=== PATIENT | male | born 1990 | race Caucasian/White ===

== ENCOUNTER 2018-09-18 20:31 | Inpatient (IN) | payer MEDICARE, MEDICAID ==
[~2018-09-18] VITALS: Ht 142.2 cm; Wt 59.4 kg
[~2018-09-18 20:31] MED LIST: ACET500C OR; ADVIL PM PO; CONGESTION PO; MSM PO; MULTIVIT PO; PRED20TA OR; TUMS500C OR; VICO5TAB OR; VIT D 2000 PO
[2018-09-18] MEDS ORDERED: NS 1,000 ML IV ONE (21:45)
[2018-09-18 21:48] LABS: BASO % 0.3 % (0.0-1.0); HEMOGLOBIN 17.8 g/dl (13.5-17.5); LYMPH % 8.6 % (24.0-44.0); MEAN CORPUSCULAR HGB CONC 31.8 g/dl (32.0-36.5); MEAN CORPUSCULAR VOLUME 100.7 fl (80.0-96.0); MONO # 0.5 10^3/uL (0.0-0.8); NEUTROPHILS # 10.3 10^3/uL (1.8-7.7); PLATELET COUNT, AUTOMATED 285 10^3/uL (150-450); RED BLOOD COUNT 5.56 10^6/uL (4.30-6.10); WHITE BLOOD COUNT 11.9 10^3/uL (4.0-10.0)
[2018-09-18 22:08] LABS: ALBUMIN 3.9 GM/DL (3.2-5.2); ALT/SGPT 1141 U/L (12-78); BILIRUBIN,TOTAL 1.8 MG/DL (0.2-1.0); BLOOD UREA NITROGEN 27 MG/DL (7-18); CALCIUM LEVEL 9.1 MG/DL (8.5-10.1); CARBON DIOXIDE LEVEL 31 MEQ/L (21-32); CHLORIDE LEVEL 96 MEQ/L (98-107); CREATININE FOR GFR 0.28 MG/DL (0.70-1.30); GLOMERULAR FILTRATION RATE > 60.0 (>60); GLUCOSE, FASTING 106 MG/DL (70-100); POTASSIUM SERUM 5.5 MEQ/L (3.5-5.1); SODIUM LEVEL 135 MEQ/L (136-145); TOTAL PROTEIN 6.4 GM/DL (6.4-8.2)
[2018-09-18 22:21] LABS: ABG BASE EXCESS -2.3 (-2.0-2.0); ABG HCO3 29.8 MEQ/L (22.0-26.0); ABG O2 SATURATION 98.4 % (95.0-99.0); ABG PARTIAL PRESSURE O2 143.3 mmHg (75.0-100.0); ABG STANDARD HCO3 22.6 MEQ/L (22.0-26.0); ABG TOTAL CO2 32.4 MEQ/L (22.0-29.0)
[2018-09-18 22:23] LABS: ABG PARTIAL PRESSURE CO2 86.4 mmHg (35.0-45.0); ABG pH (ARTERIAL) 7.155 UNITS (7.350-7.450)
[2018-09-18] MEDS ORDERED: LIDOCAINE 2% 5ML JELLY UROJET TOP ONE (22:30)
[2018-09-18 23:02] LABS: APPEARANCE, URINE MANUAL CLOUDY (CLEAR); COLOR, URINE MANUAL DK YELLOW (YELLOW)
[2018-09-18 23:03] LABS: BLOOD URINE MANUAL POSITIVE (NEGATIVE); GLUCOSE, URINE (UA) MANUAL NEGATIVE (NEGATIVE); PROTEIN, URINE MANUAL 2+ mg/dL (NEGATIVE); SPECIFIC GRAVITY,URINE MANUAL 1.026 (1.002-1.035)
[2018-09-18 23:05] LABS: LEUKOCYTE ESTERASE, URINE MAN NEGATIVE (NEGATIVE)
[2018-09-18 23:06] LABS: BILIRUBIN, URINE MANUAL OBSCURED (NEGATIVE); KETONE, URINE MANUAL OBSCURED mg/dL (NEGATIVE); NITRITE, URINE MANUAL NEGATIVE (NEGATIVE); UROBILINOGEN, URINE MANUAL OBSCURED mg/dl (NORMAL)
[2018-09-18] MEDS ORDERED: MUPI2OI EXT (23:08)
[2018-09-18] MEDS ORDERED: C 50TAB PO (23:08)
[2018-09-18] MEDS ORDERED: CALTCHW4 PO (23:08)
[2018-09-18] MEDS ORDERED: CO Q100C PO (23:08)
[2018-09-18] MEDS ORDERED: CVS125CA3 PO (23:08)
[2018-09-18] MEDS ORDERED: HM P99TA PO (23:08)
[2018-09-18] MEDS ORDERED: NEXI20CA PO (23:08)
[2018-09-18] MEDS ORDERED: D-10TAB2 PO (23:08)
[2018-09-18] MEDS ORDERED: CYAN500T3 PO (23:08)
[2018-09-18] MEDS ORDERED: HYDR-3713 PO (23:08)
[2018-09-18] MEDS ORDERED: GABA-1171 PO (23:08)
[2018-09-18] MEDS ORDERED: TIZA2TAB4 PO (23:08)
[2018-09-18] MEDS ORDERED: [UNRECOGNIZED DRUG - CODE] PO (23:08)
[2018-09-18] MEDS ORDERED: DOCU100C16 PO (23:08)
[2018-09-18] MEDS ORDERED: VITMTA PO (23:08)
[2018-09-18] MEDS ORDERED: [UNRECOGNIZED DRUG - CODE] PO (23:08)
[2018-09-18] MEDS ORDERED: BACITAB PO (23:08)
[2018-09-18] MEDS ORDERED: ISOVUE-370 76% 100ML VIAL (Q9967) As Ordered ONE (23:11)
[2018-09-18 23:18] LABS: SQUAMOUS EPITHELIAL CELL URINE NONE SEEN /hpf (SMALL AMT); TRANSITIONAL EPI CELLS, URINE SMALL AMOUNT /hpf
[2018-09-18 23:20] LABS: HYALINE CAST, URINE 40-50 /lpf (0-1)
[2018-09-18 23:22] LABS: AMORPHOUS SEDIMENT, URINE LARGE AMOUNT (NEGATIVE); BACTERIA, URINE NONE SEEN; MUCUS, URINE SMALL AMOUNT (NEGATIVE)
[2018-09-19] MEDS ORDERED: PIPERACILLIN/TAZOBACTAM SOD 4.5 GM in D5W MINI-BAG PLUS 50 ML IV ONE (01:15)
[2018-09-19] MEDS ORDERED: MORPHINE 2 MG/ML 1ML SYRINGE (J2270) IV ONE (01:15)
--- NOTE | 2018-09-19 01:23 | REPVR ---
EXAM: CT Abdomen and Pelvis With Contrast EXAM DATE/TIME: 09/18/2018 10:26 PM CLINICAL HISTORY: 28 years old, male; Abdominal pain; Generalized; Sepsis TECHNIQUE: Imaging protocol: Axial computed tomography images of the abdomen and pelvis with intravenous contrast. Coronal and sagittal reformatted images were created and reviewed. Radiation optimization: All CT scans at this facility use at least one of these dose optimization techniques: automated exposure control; mA and/or kV adjustment per patient size (includes targeted exams where dose is matched to clinical indication); or iterative reconstruction. Contrast material: ISO; Contrast volume: 100 ml; Contrast route: FOREARM; COMPARISON: No relevant prior studies available. FINDINGS: ABDOMEN: Liver: The liver is unremarkable. No liver lesion is seen. The contour of the liver is smooth. No hepatomegaly is noted. Gallbladder and bile ducts: No calcified gallstones are seen. No gallbladder wall thickening, pericholecystic fluid, or pericholecystic inflammatory changes are identified. No dilation of the intrahepatic or extrahepatic bile ducts is noted. Pancreas: Normal. No dilation of the main pancreatic duct is noted. Spleen: Normal. No splenomegaly is noted. Adrenals: Normal. No adrenal mass. Kidneys and ureters: The kidneys are normal in appearance. No renal lesion is identified. No calculi are seen in the kidneys or ureters. There is no hydronephrosis or hydroureter. There are no wedge-shaped areas of low attenuation in the kidneys to suggest pyelonephritis. There is no renal abscess or perinephric fluid collection. Stomach and bowel: There is no evidence for a bowel obstruction, diverticulosis, diverticulitis, colitis, pneumatosis intestinalis, intussusception, volvulus, or perforated viscus. Appendix: Normal. There is no evidence for appendicitis. PELVIS: Bladder: There is thickening of the wall of the urinary bladder. No stones are noted in the bladder. Reproductive: The prostate gland and seminal vesicles are unremarkable. ABDOMEN and PELVIS: Intraperitoneal space: Normal. No free air. No fluid collection. Bones/joints: There is a mild anterior wedge compression deformity of T12 and moderate anterior wedge compression deformities of L1, L2, L3, L4, and L5, which appear chronic in nature. There is no radiolucent fracture line, cortical step-off, or retropulsion of the cortex. There is a chronic healed fracture deformities involving both femoral necks. No acute fracture is noted. There is a levoscoliosis of the lumbar spine, which may in part be positional in nature. Soft tissues: There is severe diffuse fatty atrophy of the muscles. There is a extensive edema in the subcutaneous tissues in the inguinal regions, perineal region, and upper inner thighs. No drainable soft tissue fluid collection is noted. There is no gas in the soft tissues. Vasculature: The abdominal aorta is normal in caliber and patent. The iliac arteries, common femoral arteries, renal arteries, celiac artery, superior mesenteric artery, and inferior mesenteric artery are patent. There are numerous varicosities in the perianal region. Lymph nodes: Normal. No enlarged lymph nodes. Other findings: There is marked right greater than left eventration of the hemidiaphragms. IMPRESSION: 1. Thickening of the wall of the urinary bladder, which may be secondary to its partially distended state, bladder wall hypertrophy, or cystitis. Correlation with urinalysis is suggested. 2. Extensive edema in the subcutaneous tissues in the inguinal regions, perineal region, and upper inner thighs, which may represent cellulitis or lymphedema. 3. Mild anterior wedge compression deformity of T12 and moderate anterior wedge compression deformities of L1, L2, L3, L4, and L5, which appear chronic in nature. Electronically signed by: Kian Samayoa On 09/19/2018 01:22:24 AM
--- NOTE | 2018-09-19 01:23 | REPVR ---
EXAM: CT Chest With Contrast EXAM DATE/TIME: 09/18/2018 10:26 PM CLINICAL HISTORY: 28 years old, male; Sepsis TECHNIQUE: Imaging protocol: Axial computed tomography images of the chest with intravenous contrast. Coronal and sagittal reformatted images were created and reviewed. Radiation optimization: All CT scans at this facility use at least one of these dose optimization techniques: automated exposure control; mA and/or kV adjustment per patient size (includes targeted exams where dose is matched to clinical indication); or iterative reconstruction. Contrast material: ISO; Contrast volume: 100 ml; Contrast route: FOREARM; COMPARISON: No relevant prior studies available. FINDINGS: Lungs: There is atelectasis in the right upper lobe, right middle lobe, right lower lobe, and left lower lobe. The lungs are otherwise clear. Pleural space: There is a small right pleural effusion. No pneumothorax. Heart: No cardiomegaly. No pericardial effusion. Mediastinum: No mediastinal mass, hemorrhage, or pneumomediastinum is noted. Pulmonary arteries: The main and lobar pulmonary arteries are patent. This study was not dedicated for the evaluation of the segmental and subsegmental pulmonary arteries. Aorta: There is no thoracic aortic aneurysm, pseudoaneurysm, penetrating atherosclerotic ulcer, or dissection. Lymph nodes: Normal. No enlarged lymph nodes. Bones/joints: There are mild anterior wedge compression deformities of T4, T5, T6, and T12, which appear chronic in nature. There are moderate anterior wedge compression deformities of T8, L1, L2, and L3, which also appear chronic in nature. No radiolucent fracture line, cortical step-off, or cortex is noted. There is no suspicious osteolytic or osteoblastic lesion. Soft tissues: There is diffuse severe fatty atrophy of the muscles. There is edema in the subcutaneous tissues in the posterior aspect of the right axillary region. Diaphragm: There is marked right greater than left eventration of the hemidiaphragms. IMPRESSION: 1. Small right pleural effusion. 2. No lung consolidation. 3. Mild anterior wedge compression deformities of T4, T5, T6, and T12, which appear chronic in nature. Moderate anterior wedge compression deformities of T8, L1, L2, and L3, which also appear chronic in nature. 4. Marked right greater than left eventration of the hemidiaphragms. Electronically signed by: Kian Samayoa On 09/19/2018 01:22:40 AM
[2018-09-19] MEDS ORDERED: NS 1,000 ML IV ONE ×2 (02:00)
[2018-09-19] MEDS ORDERED: D5W/0.9% SODIUM CHLORIDE 1,000 ML IV SCH (02:36)
[2018-09-19 03:18] LABS: ACETAMINOPHEN LEVEL 3.5 UG/ML (10.0-30.0)
[2018-09-19 03:50] VITALS: BP 70/42
--- NOTE | 2018-09-19 04:22 | HPEPDOC ---
General Date of Admission September 19, 2018 at 02:36 Date of Service: September 19, 2018 Chief Complaint The patient is a 28-year-old male admitted with a reason for visit of Acute Liver Failure. 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 He also complained of abdominal pain and difficulty in swallowing for 1 day and as per Mom had 4 days of poor appetite. The Abdominal pain was located in the right upper quadrant without any diarrhea or constipation. The pain seemed to be constant as per mom and he may have had some associated nausea. There was no history of any fever or chills at home. He did have dark colored urine for 2 days and very small amount of urine output for 1 day. On initial presentation to the ED he was alert and oriented and could verbalize his symptoms however he was anxious and agitated as he was in pain and very uncomfortable so received 2mg of morphine which calmed him down however it also sedated him so during my interview he was only able to open his eyes briefly but could not talk. Initially his saturation was 78% in room air which improved with oxygen. He was lethargic. Patient was found to have very abnormal liver function tests and his ABG showed acute respiratory failure with hypercarbia and hypoxia. Patient had a CT abdomen and pelvis done which showedThickening of the wall of the urinary bladder, which may be secondary to its partially distended state, bladder wall hypertrophy, or cystitis. Extensive edema in the subcutaneous tissues in the inguinal regions, perineal region, and upper inner thighs, which may represent cellulitis or lymphedema. Mild anterior wedge compression deformity of T12 and moderate anterior wedge compression deformities of L1, L2, L3, L4, and L5, which appear chronic in nature. CT chest was also done . Small right pleural effusion. No lung consolidation. Mild anterior wedge compression deformities of T4, T5, T6, and T12, which appear chronic in nature. Moderate anterior wedge compression deformities of T8, L1, L2, and L3, which also appear chronic in nature. Marked right greater than left eventration of the hemidiaphragms. Home Medications Scheduled Ascorbic Acid (Vitamin C) 500 Mg Tablet, 500 MG PO DAILY, (Reported) Calcium Carbonate/Vitamin D3 (Caltrate 600 + D Soft Chew Tab) 1 Each Tab.chew, 1 CHW PO DAILY, (Reported) Cholecalciferol (Vitamin D3) (Vitamin D3) 1,000 Unit Tablet, 1,000 UNIT PO DAILY, (Reported) Cyanocobalamin (Vitamin B-12) (Vitamin B-12) 500 Mcg Tablet, 500 MCG PO DAILY, (Reported) Deflazacort (Emflaza) 6 Mg Tablet, 6 MG PO DAILY, (Reported) TAKES WITH 30MG FOR 36MG TOTAL Deflazacort (Emflaza) 30 Mg Tablet, 30 MG PO DAILY, (Reported) TAKES WITH 6MG FOR 36MG TOTAL Docusate Sodium (Docusate Sodium) 100 Mg Capsule, 100 MG PO DAILY, (Reported) Esomeprazole Magnesium (Nexium) 20 Mg Capsule.dr, 20 MG PO BID, (Reported) Gabapentin (Gabapentin) 100 Mg Capsule, 600 MG PO BID, (Reported) L.acidoph/L.bulg/B.bif/S.therm (Bacid Caplet) 1 Each Tablet, 1 TAB PO DAILY, (Reported) Multivitamins (Thera M Plus Tablet) 1 Each Tablet, 1 TAB PO DAILY, (Reported) Potassium Gluconate (Potassium) 99 Mg Tablet, 99 MG PO DAILY, (Reported) Simethicone (Gas Relief) 125 Mg Capsule, 125 MG PO BID, (Reported) Ubidecarenone (Co Q-10) 100 Mg Capsule, 100 MG PO DAILY, (Reported) Scheduled PRN Hydrocodone/Acetaminophen (Hydrocodone-Acetamin 5-325 mg) 1 Each Tablet, 1 TAB PO TID PRN for PAIN, (Reported) Mupirocin (Mupirocin) 22 Gm Oint...g., 1 DOSE EXT BID PRN for RASH, (Reported) UNDER STOMACH FOLDS AND ON BUTTOCKS Tizanidine HCl (Tizanidine HCl) 2 Mg Tablet, 2 MG PO TID PRN for MUSCLE SPASMS, (Reported) Allergies Coded Allergies: No Known Allergies (Unverified , 09/18/18) Past Medical History Medical History Duchenne's muscular dystrophy Surgical History repair of fractured femur on the left in 2005 Family History Significant Family History: Diabetes (mother) Reviewed with patient's mom and has been found to be non contributory Social History * Smoker: Denies Alcohol: Denies Drugs: denies A-FIB/CHADSVASC A-FIB History Current/History of A-Fib/PAF?: No Review of Systems Constitutional: Reports: Weakness; Denies: Chills, Fever, Night Sweats, Lethargy, Other Eyes: Denies: Pain, Conjunctivae inflammation, Redness ENT: Reports: Dysphagia; Denies: Head Aches, Ear Pain, Sinus Congestion, Other Symptoms Skin: Reports: Dry, Other (pale and damp) Pulmonary: Denies: Dyspnea, Cough, Pleuritic Chest Pain, Other Symptoms Cardiovascular: Denies: Chest Pain, Palpitations, Orthopnea, Paroxysmal Noc. Dyspnea Gastrointestinal: Reports: Nausea, Abdominal Pain Genitourinary: Reports: Other Symptoms (decreased urination) Hematologic: Denies: Bruising, Bleeding Excessively Musculoskeletal: Reports: Muscle Pain Physical Examination General Exam: Positive: Moderate Distress, Other (lethargic) ENT Exam: Positive: Atraumatic, Mucous membr. moist/pink, Pharynx Normal Neck Exam: Positive: Supple Heart Exam: Positive: Tachycardic, Normal S1, Normal S2 Telemetry: Positive: Sinus, Tachycardia Abdomen Exam: Positive: BS Hypoactive, Soft, Tenderness (RUQ) Extremity Exam: Positive: Edema, Swelling, Other (Both the lower extremities folded and contracted.) Neuro Exam: Positive: Other (quadriparesis) Psych Exam: Positive: Other (lethargic) Vital Signs Vital Signs Date Time Temp Pulse Resp B/P (MAP) Pulse Ox O2 Delivery O2 Flow Rate FiO2 09/19/18 02:30 98/54 (69) 09/19/18 02:16 117 14 93 Nasal Cannula 2.0 09/18/18 23:46 97.6 Laboratory Data Labs 24H Laboratory Tests 2 09/18/18 21:10: Immature Granulocyte % (Auto) 1.1, White Blood Count 11.9H, Red Blood Count 5.56, Hemoglobin 17.8H, Hematocrit 56.0H, Mean Corpuscular Volume 100.7H, Mean Corpuscular Hemoglobin 32.0, Mean Corpuscular Hemoglobin Concent 31.8L, Red Cell Distribution Width 15.1H, Platelet Count 285, Neutrophils (%) (Auto) 86.0H, Lymphocytes (%) (Auto) 8.6L, Monocytes (%) (Auto) 4.0, Eosinophils (%) (Auto) 0.0, Basophils (%) (Auto) 0.3, Neutrophils # (Auto) 10.3H, Lymphocytes # (Auto) 1.0L, Monocytes # (Auto) 0.5, Eosinophils # (Auto) 0.0, Basophils # (Auto) 0.0, Nucleated Red Blood Cells % (auto) 0.0, Anion Gap 8, Glomerular Filtration Rate > 60.0, Lactic Acid Level 2.5*H, Calcium Level 9.1, Aspartate Amino Transf (AST/SGOT) 1120H, Alanine Aminotransferase (ALT/SGPT) 1141H, Alkaline Phospha tase 172H, Total Bilirubin 1.8H, Direct Bilirubin 1.0H, Total Protein 6.4, Albumin 3.9, Albumin/Globulin Ratio 1.56 09/18/18 21:35: Bedside Glucose (Misc Panel) 104 09/18/18 21:46: Blood Gas Bicarbonate Standard 22.6, Arterial Blood pH 7.155*L, Arterial Blood Partial Pressure CO2 86.4*H, Arterial Blood Partial Pressure O2 143.3H, Arterial Blood Total CO2 32.4H, Arterial Blood HCO3 29.8H, Arterial Blood Base Excess - 2.3L, Arterial Blood Oxygen Saturation 98.4 09/18/18 22:42: Bedside Urine Color (LAB) DK YELLOW, Bedside Urine Appearance (LAB) CLOUDYH, Bedside Urine pH (LAB) 5.0, Bedside Urine Specific [place] (LAB 1.026, Bedside Urine Protein (LAB) 2+H, Bedside Urine Glucose (UA) NEGATIVE, Bedside Urine Ketones (LAB) OBSCUREDH, Bedside Urine Blood POSITIVEH, Bedside Urine Nitrite (LAB) NEGATIVE, Bedside Urine Bilirubin (LAB) OBSCUREDH, Bedside Urine Urobilinogen (LAB) OBSCUREDH, Bedside Urine Leukocyte Esterase (L NEGATIVE, Ur ine WBC 5-7H, Urine RBC 3-5H, Urine Squamous Epithelial Cells NONE SEEN, Urine Transitional Epithelial Cells SMALL AMOUNTH, Urine Bacteria NONE SEEN, Urine Hyaline Casts 40-50, Urine Mucus SMALL AMOUNTH, Urine Amorphous Sediment LARGE AMOUNTH, Urine Sediment Examination PERFORMED, Urine Granular Casts 3-5H 09/19/18 02:37: CBC/BMP Laboratory Tests 09/18/18 21:10 Red Blood Count 5.56, Mean Corpuscular Volume 100.7 H, Mean Corpuscular Hemoglobin 32.0, Mean Corpuscular Hemoglobin Concent 31.8 L, Red Cell Distribution Width 15.1 H, Neutrophils (%) (Auto) 86.0 H, Lymphocytes (%) (Auto) 8.6 L, Monocytes (%) (Auto) 4.0, Eosinophils (%) (Auto) 0.0, Basophils (%) (Auto) 0.3, Neutrophils # (Auto) 10.3 H, Lymphocytes # (Auto) 1.0 L, Monocytes # (Auto) 0.5, Eosinophils # (Auto) 0.0, Basophils # (Auto) 0.0 Microbiology Microbiology 09/18/18 Blood Culture, Received Pending 09/18/18 Blood Culture, Received Pending 09/18/18 Urine Culture, Received Pending Assessment/Plan 28 year old male with end stage Duchenne's muscular dystrophy, bed bound, 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 He also complained of abdominal pain and difficulty in swallowing for 1 day and as per Mom had 4 days of poor appetite. Patient was fo und to have very abnormal liver function tests and his ABG showed acute respiratory failure with hypercarbia and hypoxia. Transaminitis with AST and ALT. 1000 etiologies are drug induced hepatitis/ shock liver / viral hepatitis. there has been no documentation of overt hypotension. however may have had undocumented hypotension episodes at home. Hepatitis panel has been ordered. I feel this is most likely drug induced hepatitis most probably related to acetaminophen which was one of the patient's prescriptions though the acetaminophen level was low. will continue symptomatic management. will continue IVF. antibiotics. Lactacidosis on admission due to liver failure or increased work of breathing. Acute on chronic respiratory failure with hypercarbia and hypoxia. Due to acidosis requiring increased work of breathing leading to decompensation of his chronic respiratory failure from his muscular dystrophy. patient is DNI and DNR. 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 Anasarca ? CHF. Metabolic Encephalopathy due to hypercarbic respiratory failure and liver failure. Advance directives: Discussed with Mother regarding his problems and blood tests and explained that with his end stage muscular dystrophy he would be able to come out of this liver failure and respiratory failure and that what ever we do he will not survive this hospitalization. She has opted for DNR and DNI status. Plan / VTE VTE Prophylaxis Ordered?: Yes TOREY WEST MD September 19, 2018 03:14
[2018-09-19] MEDS ORDERED: MORPHINE 4 MG/ML 1ML VIAL/SYRINGE (J2270) IV PRN (04:30)
--- NOTE | 2018-09-19 06:44 | IPNPDOC ---
Text Note Date of Service The patient was seen on 09/19/18. NOTE Pateint's mon wanted him to be made comfort measures and to given morphine for pain or discomfort. FISH WARDEN orders put in. A-FIB/CHADSVASC A-FIB History Current/History of A-Fib/PAF?: No VS,Fishbone, I+O VS, Fishbone, I+O Laboratory Tests 09/18/18 21:10 Red Blood Count 5.56, Mean Corpuscular Volume 100.7 H, Mean Corpuscular Hemoglobin 32.0, Mean Corpuscular Hemoglobin Concent 31.8 L, Red Cell Distribution Width 15.1 H, Neutrophils (%) (Auto) 86.0 H, Lymphocytes (%) (Auto) 8.6 L, Monocytes (%) (Auto) 4.0, Eosinophils (%) (Auto) 0.0, Basophils (%) (Auto) 0.3, Neutrophils # (Auto) 10.3 H, Lymphocytes # (Auto) 1.0 L, Monocytes # (Auto) 0.5, Eosinophils # (Auto) 0.0, Basophils # (Auto) 0.0 Vital Signs Date Time Temp Pulse Resp B/P (MAP) Pulse Ox O2 Delivery O2 Flow Rate FiO2 09/19/18 04:36 6 09/19/18 03:50 114 70/42 (51) 71 2.0 09/19/18 03:15 97.8 Nasal Cannula I&O- Last 24 Hours up to 6 AM 09/19/18 05:59 Intake Total 2050 ml Output Total 200 ml Balance 1850 ml TOREY WEST MD September 19, 2018 06:44
[2018-09-19] MEDS ORDERED: SCOPOLAMINE 1MG TRANSDERMAL PATCH TOP PRN (06:45)
[2018-09-19] MEDS ORDERED: HYOSCYAMINE SULFATE 0.125 MG SUBL TABLET PO PRN (06:45)
[2018-09-19] MEDS ORDERED: ONDANSETRON 4MG/2ML VIAL (J2405) IV PRN (06:45)
[2018-09-19] MEDS ORDERED: PIPERACILLIN/TAZOBACTAM SOD 3.375 GM in D5W MINI-BAG PLUS 50 ML IV SCH (08:00)
--- NOTE | 2018-09-19 09:57 | DS.PDOC ---
Discharge Summary General Date of Admission September 19, 2018 at 02:36 Date of Discharge Discharge/ Summary HPI: "28 year old male with end stage Duchenne's muscular dystrophy, bed bound, 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 He also complained of abdominal pain and difficulty in swallowing for 1 day and as per Mom had 4 days of poor appetite. The Abdominal pain was located in the right upper quadrant without any diarrhea or constipation. The pain seemed to be constant as per mom and he may have had some associated nausea. There was no history of any fever or chills at home. He did have dark colored urine for 2 days and very small amount of urine output for 1 day. On initial presentation to the ED he was alert and oriented and could verbalize his symptoms however he was anxious and agitated as he was in pain and very uncomfortable so received 2mg of morphine which calmed him down however it also sedated him so during my interview he was only able to open his eyes briefly but could not talk. Initially his saturation was 78% in room air which improved with oxygen. He was lethargic. Patient was found to have very abnormal liver function tests and his ABG showed acute respiratory failure with hypercarbia and hypoxia. Patient had a CT abdomen and pelvis done which showedThickening of the wall of the urinary bladder, which may be secondary to its partially distended state, bladder wall hypertrophy, or cystitis. Extensive edema in the subcutaneous tissues in the inguinal regions, perineal region, and upper inner thighs, which may represent cellulitis or lymphedema. Mild anterior wedge compression deformity of T12 and moderate anterior wedge compression deformities of L1, L2, L3, L4, and L5, which appear chronic in nature. CT chest was also done . Small right pleural effusion. No lung consolidation. Mild anterior wedge compression deformities of T4, T5, T6, and T12, which appear chronic in nature. Moderate anterior wedge compression deformities of T8, L1, L2, and L3, which also appear chronic in nature. 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 He passed early this morning. Time of : 8:06 AM 09/19/2018 Discharge Summary PROCEDURES PERFORMED DURING STAY: [None]. ADMITTING DIAGNOSES: 1. . DISCHARGE DIAGNOSES: 1. . COMPLICATIONS/CHIEF COMPLAINT: Acute Liver Failure. HISTORY OF PRESENT ILLNESS: . HOSPITAL COURSE: . DISCHARGE MEDICATIONS: Please see below. ALLERGIES: Please see below. PHYSICAL EXAMINATION ON DISCHARGE: VITAL SIGNS: Please see below. GENERAL: HEENT: NECK: CARDIOVASCULAR EXAMINATION: RESPIRATORY EXAMINATION: ABDOMINAL EXAMINATION: EXTREMITIES: SKIN: NEUROLOGICAL EXAMINATION: PSYCHIATRIC EXAMINATION: LABORATORY DATA: Please see below. IMAGING: PROGNOSIS: ACTIVITY: [As tolerated]. DIET: DISCHARGE PLAN: DISPOSITION: . DISCHARGE INSTRUCTIONS: 1. . ITEMS TO FOLLOWUP ON ON OUTPATIENT: 1. . DISCHARGE CONDITION: [Stable]. TIME SPENT ON DISCHARGE: Greater than minutes. Vital Signs/I&Os Vital Signs Date Time Temp Pulse Resp B/P (MAP) Pulse Ox O2 Delivery O2 Flow Rate FiO2 09/19/18 04:36 6 09/19/18 03:50 114 70/42 (51) 71 2.0 09/19/18 03:15 97.8 Nasal Cannula I&O- Last 24 Hours up to 6 AM 09/19/18 05:59 Intake Total 2050 ml Output Total 200 ml Balance 1850 ml Laboratory Data Labs 24H Laboratory Tests 2 09/18/18 21:10: Immature Granulocyte % (Auto) 1.1, White Blood Count 11.9H, Red Blood Count 5.56, Hemoglobin 17.8H, Hematocrit 56.0H, Mean Corpuscular Volume 100.7H, Mean Corpuscular Hemoglobin 32.0, Mean Corpuscular Hemoglobin Concent 31.8L, Red Cell Distribution Width 15.1H, Platelet Count 285, Neutrophils (%) (Auto) 86.0H, L ymphocytes (%) (Auto) 8.6L, Monocytes (%) (Auto) 4.0, Eosinophils (%) (Auto) 0.0, Basophils (%) (Auto) 0.3, Neutrophils # (Auto) 10.3H, Lymphocytes # (Auto) 1.0L, Monocytes # (Auto) 0.5, Eosinophils # (Auto) 0.0, Basophils # (Auto) 0.0, Nucleated Red Blood Cells % (auto) 0.0, Anion Gap 8, Glomerular Filtration Rate > 60.0, Lactic Acid Level 2.5*H, Calcium Level 9.1, Aspartate Amino Transf (AST/SGOT) 1120H, Alanine Aminotransferase (ALT/SGPT) 1141H, Alkaline Phosphatase 172H, Total Bilirubin 1.8H, Direct Bilirubin 1.0H, Total Protein 6.4, Albumin 3.9, Albumin/Globulin Ratio 1.56, Acetaminophen Level 3.5L 09/18/18 21:35: Bedside Glucose (Misc Panel) 104 09/18/18 21:46: Blood Gas Bicarbonate Standard 22.6, Arterial Blood pH 7.155*L, Arterial Blood Partial Pressure CO2 86.4*H, Arterial Blood Partial Pressure O2 143.3H, Arterial Blood Total CO2 32.4H, Arterial Blood HCO3 29.8H, Arterial Blood Base Excess - 2.3L, Arterial Blood Oxygen Saturation 98.4 09/18/18 22:42: Bedside Urine Color (LAB) DK YELLOW, Bedside Urine Appearance (LAB) CLOUDYH, Bedside Urine pH (LAB) 5.0, Bedside Urine Specific [place] (LAB 1.026, Bedside Urine Protein (LAB) 2+H, Bedside Urine Glucose (UA) NEGATIVE, Bedside Urine Ketones (LAB) OBSCUREDH, Bedside Urine Blood POSITIVEH, Bedside Urine Nitrite (LAB) NEGATIVE, Bedside Urine Bilirubin (LAB) OBSCUREDH, Bedside Urine Urobilinogen (LAB) OBSCUREDH, Bedside Urine Leukocyte Esterase (L NEGATIVE, Urine WBC 5-7H, Urine RBC 3-5H, Urine Squamous Epithelial Cells NONE SEEN, Urine Transitional Epithelial Cells SMALL AMOUNTH, Urine Bacteria NONE SEEN, Urine Hyaline Casts 40-50, Urine Mucus SMALL AMOUNTH, Urine Amorphous Sediment LARGE AMOUNTH, Urine Sediment Examination PERFORMED, Urine Granular Casts 3-5H 09/19/18 02:37: Lactic Acid Followup at 4 Hours 0.8 CBC/BMP Laboratory Tests 09/18/18 21:10 Red Blood Count 5.56, Mean Corpuscular Volume 100.7 H, Mean Corpuscular Hemoglobin 32.0, Mean Corpuscular Hemoglobin Concent 31.8 L, Red Cell Distribution Width 15.1 H, Neutrophils (%) (Auto) 86.0 H, Lymphocytes (%) (Auto) 8.6 L, Monocytes (%) (Auto) 4.0, Eosinophils (%) (Auto) 0.0, Basophils (%) (Auto) 0.3, Neutrophils # (Auto) 10.3 H, Lymphocytes # (Auto) 1.0 L, Monocytes # (Auto) 0.5, Eosinophils # (Auto) 0.0, Basophils # (Auto) 0.0 FSBS Laboratory Tests Test 09/18/18 21:35 Range/Units Bedside Glucose (Misc Panel) 104 70-105 MG/DL Microbiology Microbiology 09/18/18 Blood Culture, Received Pending 09/18/18 Blood Culture, Received Pending 09/18/18 Urine Culture, Received Pending Discharge Medications Scheduled Ascorbic Acid (Vitamin C) 500 Mg Tablet, 500 MG PO DAILY, (Reported) Calcium Carbonate/Vitamin D3 (Caltrate 600 + D Soft Chew Tab) 1 Each Tab.chew, 1 CHW PO DAILY, (Reported) Cholecalciferol (Vitamin D3) (Vitamin D3) 1,000 Unit Tablet, 1,000 UNIT PO DAILY, (Reported) Cyanocobalamin (Vitamin B-12) (Vitamin B-12) 500 Mcg Tablet, 500 MCG PO DAILY, (Reported) Deflazacort (Emflaza) 6 Mg Tablet, 6 MG PO DAILY, (Reported) TAKES WITH 30MG FOR 36MG TOTAL Deflazacort (Emflaza) 30 Mg Tablet, 30 MG PO DAILY, (Reported) TAKES WITH 6MG FOR 36MG TOTAL Docusate Sodium (Docusate Sodium) 100 Mg Capsule, 100 MG PO DAILY, (Reported) Esomeprazole Magnesium (Nexium) 20 Mg Capsule.dr, 20 MG PO BID, (Reported) Gabapentin (Gabapentin) 100 Mg Capsule, 600 MG PO BID, (Reported) L.acidoph/L.bulg/B.bif/S.therm (Bacid Caplet) 1 Each Tablet, 1 TAB PO DAILY, (Reported) Multivitamins (Thera M Plus Tablet) 1 Each Tablet, 1 TAB PO DAILY, (Reported) Potassium Gluconate (Potassium) 99 Mg Tablet, 99 MG PO DAILY, (Reported) Simethicone (Gas Relief) 125 Mg Capsule, 125 MG PO BID, (Reported) Ubidecarenone (Co Q-10) 100 Mg Capsule, 100 MG PO DAILY, (Reported) Scheduled PRN Hydrocodone/Acetaminophen (Hydrocodone-Acetamin 5-325 mg) 1 Each Tablet, 1 TAB PO TID PRN for PAIN, (Reported) Mupirocin (Mupirocin) 22 Gm Oint...g., 1 DOSE EXT BID PRN for RASH, (Reported) UNDER STOMACH FOLDS AND ON BUTTOCKS Tizanidine HCl (Tizanidine HCl) 2 Mg Tablet, 2 MG PO TID PRN for MUSCLE SPASMS, (Reported) Allergies Coded Allergies: No Known Allergies (Unverified , 09/18/18) TITUS IRWIN MD September 19, 2018 09:57
== END 2018-09-19 08:06 | disposition expired | DRG 441 ==
LOC: M ED 20:31 → M ED INP 09-19 02:36 → M MSPAV 09-19 03:45
PROVIDERS: ADMIT Internal Medicine Nephrology; ATTEND Student in an Organized Health Care Education/Training Program
DX: K71.10 Toxic liver disease with hepatic necrosis, without coma (principal); J96.22 Acute and chronic respiratory failure with hypercapnia; J96.21 Acute and chronic respiratory failure with hypoxia; G93.41 Metabolic encephalopathy; G82.50 Quadriplegia, unspecified; E87.2 Acidosis; N17.9 Acute kidney failure, unspecified; I50.9 Heart failure, unspecified; G71.01 Duchenne or Becker muscular dystrophy; Z79.899 Other long term (current) drug therapy; Z51.5 Encounter for palliative care